=== PATIENT | female | born 1955 | race Caucasian/White ===

== ENCOUNTER 2017-07-25 11:48 | Emergency (ER) | payer MEDICAID ==
[2017-07-25] MEDS ORDERED: Acetaminophen/HYDROcodone 325-5 MG Tab ONE (11:55)
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
--- NOTE | 2017-07-26 09:06 | CT ---
DATE OF SERVICE: 07/25/17 CLINICAL DATA: Possible right femoral neck fracture PELVIC CT: Multi slice axial acquisition was performed. Axial images and sagittal and coronal reformations are reviewed. There is a minimally displaced fracture involving the central and medial aspect of the superior pubic ramus and pubic bone on the right. I do not definitely see a fracture involving the inferior pubic ramus on the right, however there is slight cortical buckling which may be related to trauma. No other fractures. There is degenerative disc disease in the lower lumbar spine. No lytic or blastic bone lesions. IMPRESSION: Abnormal exam. See above. [id number] [facility]
== END 2017-07-25 14:20 | disposition home or self-care (01) ==
LOC: LB.ED 11:48
DX: S32.511A Fracture of superior rim of right pubis, initial encounter for closed fracture (principal); Z88.1 Allergy status to other antibiotic agents; Z79.899 Other long term (current) drug therapy; V86.52XA Driver of snowmobile injured in nontraffic accident, initial encounter
CPT/HCPCS: 72192; 73501; 99284; A9270

== ENCOUNTER 2019-05-06 09:35 | Emergency (ER) | payer MEDICAID ==
[2019-05-06] MEDS ORDERED: Albuterol 8 GM Inhaler INH ONE (09:45)
[2019-05-06] MEDS: Albuterol/Ipratropium 3.0-0.5 MG/3 ML Neb Soln NEB ONE (09:45)
[2019-05-06] MEDS ORDERED: predniSONE 10 MG Tab ONE (09:45)
[2019-05-06 10:01] VITALS: BP 160/101; PULSE 100
--- NOTE | 2019-05-06 14:15 | ER ---
HPI: A 63-year-old lady who comes in with complaints of coughing, shortness of breath, and wheezing. She tells me that the cough started a couple of months ago, but it was not very aggressive. Over the last week, it has become worse. She is become more gurgly mostly at night when she lays down and now the last 2 nights have gotten worse yet. She has more wheezing. She states that she is short of breath at times. She is not taking any inhalers and denies running a fever or feeling chilled. CURRENT MEDICATIONS: Include Synthroid and estradiol. PAST MEDICAL HISTORY: Includes blastomycosis in 2000. She tells me she gets an episode like this usually once a year and until she gets treated, it never seems to go away, but she has never been on any inhalers other than for treatment purposes for a flare up. The patient is a nonsmoker. OBJECTIVE: GENERAL APPEARANCE: The patient is awake and alert. No obvious distress at rest. VITAL SIGNS: Reviewed. Blood pressure 160/101, respirations 18, pulse 100. She is afebrile. O2 sats are 95% on room air. HEENT: Ears, TMs are dull. Nares are patent. Oral mucous membranes moist. Tonsils not enlarged or injected. Pharynx not inflamed. NECK: Supple. LUNGS: Reduced air exchange. The patient coughs quickly with trying to take a deep breath and there are rales and wheezes throughout. After 2 attempts at taking a deep breath, I had the patient stop. CARDIAC: Heart sounds distinct without murmurs. SKIN: Warm and dry. INITIAL TREATMENT PLAN: A DuoNeb was given to the patient and within 10 minutes, she was able to take a deep breath without coughing. I re-evaluated her lungs and the wheezes have significantly improved. There are just minimal wheezes now and I hear just a small amount of rales. IMAGING: Chest x-ray was obtained and appears unremarkable. I do not see any pneumonia. LABORATORY DATA: Labs include a CBC, white count is normal. Eosinophils are high. Viral markers are low. Basic metabolic panel is unremarkable. BNP is normal at 92. DIAGNOSIS: Reactive airway disease, allergy in nature. TREATMENT PLAN: The patient will be discharged with an albuterol inhaler. She is to take 2 puffs every 4 hours as needed. I will also write a script for Symbicort 80/4.5 two puffs b.i.d. for 2 weeks and then as needed. She will start this on Wednesday, and I will give her oral prednisone 30 mg a day for 2 days and then 20 mg a day until the bottle is gone. There are 15 tablets of 10 mg in the bottle. I had the patient tells me she has an appointment time scheduled with her primary care provider on Wednesday. I advised the patient to keep that for a recheck. YASMEEN/GEE /[id number]
--- NOTE | 2019-05-07 13:11 | CR ---
DATE OF SERVICE: 05/06/19 CLINICAL DATA: SOB - Cough x 2 months. AP PORTABLE CHEST: No priors. The heart size is normal. There is calcification of the aortic arch. The lungs are clear. No pneumothorax. No pleural effusions. No evidence of acute intrathoracic disease. [id number] [facility]
== END 2019-05-06 11:02 | disposition home or self-care (01) ==
LOC: LB.ED 09:35
DX: J45.909 Unspecified asthma, uncomplicated (principal)
CPT/HCPCS: 36415; 71045; 80048; 83880; 85025; 99285-25; A9270-GY; J7620-GY

== ENCOUNTER 2020-05-26 14:01 | Emergency (ER) | payer MEDICAID ==
[2020-05-26] MEDS ORDERED: Albuterol/Ipratropium 3.0-0.5 MG/3 ML Neb Soln NEB PRN (15:23)
--- NOTE | 2020-05-26 15:35 | EDM.PDOC ---
ED HPI GENERAL MEDICAL PROBLEM - General Chief Complaint: Respiratory Problem Stated Complaint: Shortness of Breath Time Seen by Provider: 05/26/20 15:15 Source of Information: Reports: Patient History Limitations: Reports: No Limitations - History of Present Illness INITIAL COMMENTS - FREE TEXT/NARRATIVE: patient presented to the ER with a c/o SOB and cough. started 5 days ago and progressively getting worse. non productive cough. no fever or chills. h/o asthma on inhaler. Also reports similar incidences every year, same time of the year. Last time she improved with a neb treatment and medrol dose gama. no CP, no exposure to covid. non smoker. Onset: Gradual Duration: Day(s): (5) Location: Reports: Chest Worsens with: Reports: Movement - Related Data Allergies Allergy/AdvReac Type Severity Reaction Status Date / Time nitrofurantoin Allergy Muscle Verified 05/26/20 15:11 [From Macrobid] Weakness Home Meds: Home Meds Levothyroxine [Synthroid] 88 mcg PO ACBREAKFAST 07/25/17 [History] estradioL [Estradiol] 1 mg PO DAILY 07/25/17 [History] Albuterol [Proventil HFA] 2 puff PO Q4HR 05/26/20 [History] Albuterol [Proventil Neb Soln] 2.5 mg NEB Q6HR PRN #20 neb 05/26/20 [Rx] Fluticasone Propionate [Flovent] 1 puff IH BID 05/26/20 [History] methylPREDNISolone [Medrol Dose Pack] 4 mg PO DAILY #21 dospk 05/26/20 [Rx] Past Medical History Respiratory History: Reports: Other (See Below) Other Respiratory History: hx of blastomycosis [employer]DEL [employer]' History: Reports: Other (See Below) Other [employer]' History: hysterectomy at age 28 - Past Surgical History Female Surgical History: Reports: None Social & Family History - Caffeine Use Caffeine Use: Reports: Coffee ED ROS GENERAL - Review of Systems Review Of Systems: Comprehensive ROS is negative, except as noted in HPI. Constitutional: Reports: No Symptoms. Denies: Fever, Chills, Malaise HEENT: Reports: No Symptoms Respiratory: Reports: Shortness of Breath, Cough. Denies: Wheezing, Pleuritic Chest Pain, Sputum Cardiovascular: Reports: Dyspnea on Exertion. Denies: Chest Pain, Lightheadedness Endocrine: Reports: No Symptoms GI/Abdominal: Reports: No Symptoms Musculoskeletal: Reports: No Symptoms Skin: Reports: No Symptoms Psychiatric: Reports: No Symptoms ED EXAM, GENERAL - Physical Exam Exam: See Below Exam Limited By: No Limitations General Appearance: Alert, WD/WN, No Apparent Distress Eye Exam: Bilateral Eye: PERRL Throat/Mouth: Normal Inspection Head: Atraumatic Neck: Normal Inspection Respiratory/Chest: No Respiratory Distress, Lungs Clear, No Accessory Muscle Use, Chest Non-Tender Cardiovascular: Normal Peripheral Pulses GI/Abdominal: Normal Bowel Sounds, Soft, Non-Tender Course - Vital Signs Last Recorded V/S: Last Vital Signs Temp 37.1 C 05/26/20 15:11 Pulse 113 H 05/26/20 15:11 Resp 24 H 05/26/20 15:11 BP 174/113 H 05/26/20 15:11 Pulse Ox 94 L 05/26/20 15:11 - Orders/Labs/Meds Orders: Active Orders 24 hr Category Date Time Status RT Aerosol Therapy [RC] ASDIRECTED Care 05/26/20 15:25 Active BASIC METABOLIC PANEL,BMP [CHEM] Stat Lab 05/26/20 15:23 Ordered CBC WITH AUTO DIFF [HEME] Stat Lab 05/26/20 15:22 Ordered Albuterol/Ipratropium [DuoNeb 3.0-0.5 MG/3 ML] Med 05/26/20 15:23 Active 3 ml NEB Q4H PRN Medication Orders Albuterol/Ipratropium (Duoneb 3.0-0.5 Mg/3 Ml) 3 ml NEB Q4H PRN PRN Reason: Wheezing Last Admin: 05/26/20 15:26 Dose: 3 ml Documented by: TONY Meds: Medications Generic Name Dose Route Start Last Admin Trade Name Freq PRN Reason Stop Dose Admin Albuterol/Ipratropium 3 ml 05/26/20 15:23 05/26/20 15:26 Duoneb 3.0-0.5 Mg/3 Ml NEB 3 ml Q4H PRN Administration Wheezing - Re-Assessments/Exams Free Text/Narrative Re-Assessment/Exam: 05/26/20 15:34 no hypoxia and no signs of respiratory distress. DuoNeb was given - reports significant improvement in symptoms. labs were ordered - WNL. no leukocytosis but significant for hypereosinophilia. to be d/cd home on medrol dose gama Departure - Departure Time of Disposition: 16:00 Disposition: Home, Self-Care 01 Condition: Good Clinical Impression: Exacerbation of asthma Qualifiers: Asthma severity: mild Asthma persistence: intermittent Qualified Code(s): J45.21 - Mild intermittent asthma with (acute) exacerbation Reactive airway disease Qualifiers: Asthma severity: mild Asthma persistence: intermittent Asthma complication type: uncomplicated Qualified Code(s): J45.20 - Mild intermittent asthma, uncomplicated - Discharge Information *PRESCRIPTION DRUG MONITORING PROGRAM REVIEWED*: Not Applicable *COPY OF PRESCRIPTION DRUG MONITORING REPORT IN PATIENT RAQUEL: Not Applicable Referrals: PCP,None [Primary Care Provider] - Sepsis Event Note (ED) - Evaluation Sepsis Screening Result: No Definite Risk - Focused Exam Vital Signs: Vital Signs Temp Pulse Resp BP Pulse Ox 05/26/20 15:11 37.1 C 113 H 24 H 174/113 H 94 L - Problem List & Annotations (1) Exacerbation of asthma SNOMED Code(s): 624835991 Code(s): J45.901 - UNSPECIFIED ASTHMA WITH (ACUTE) EXACERBATION Status: Acute Current Visit: Yes Qualifiers: Asthma severity: mild Asthma persistence: intermittent Qualified Code(s): J45.21 - Mild intermittent asthma with (acute) exacerbation (2) Reactive airway disease SNOMED Code(s): 045441324522 Code(s): J45.909 - UNSPECIFIED ASTHMA, UNCOMPLICATED Status: Acute Current Visit: Yes Qualifiers: Asthma severity: mild Asthma persistence: intermittent Asthma complication type: uncomplicated Qualified Code(s): J45.20 - Mild intermittent asthma, uncomplicated - Problem List Review Problem List Initiated/Reviewed/Updated: Yes - My Orders Last 24 Hours: My Active Orders 05/26/20 15:22 CBC WITH AUTO DIFF [HEME] Stat 05/26/20 15:23 BASIC METABOLIC PANEL,BMP [CHEM] Stat Albuterol/Ipratropium [DuoNeb 3.0-0.5 MG/3 ML] 3 ml NEB Q4H PRN 05/26/20 15:25 RT Aerosol Therapy [RC] ASDIRECTED - Assessment/Plan Last 24 Hours: My Active Orders 05/26/20 15:22 CBC WITH AUTO DIFF [HEME] Stat 05/26/20 15:23 BASIC METABOLIC PANEL,BMP [CHEM] Stat Albuterol/Ipratropium [DuoNeb 3.0-0.5 MG/3 ML] 3 ml NEB Q4H PRN 05/26/20 15:25 RT Aerosol Therapy [RC] ASDIRECTED Plan: neb treatment will be d/cd home on a neb machine and Medrol dose Gama
[2020-05-26] MEDS ORDERED: predniSONE 20 MG Tab PO ONE (15:37)
[2020-05-26] MEDS ORDERED: Albuterol 0.083% 2.5 MG/3 ML Neb Soln NEB ONE (15:47)
[2020-05-26] MEDS ORDERED: predniSONE 20 MG Tab ONE (15:49)
== END 2020-05-26 16:05 | disposition home or self-care (01) ==
LOC: LB.ED 14:01
DX: J45.21 Mild intermittent asthma with (acute) exacerbation (principal); Z88.1 Allergy status to other antibiotic agents; Z79.899 Other long term (current) drug therapy
CPT/HCPCS: 36415; 80048; 85025; 99284; 99285-25; J7512; J7620-GY